=== PATIENT | female | born 2000 | race Caucasian/White ===

== ENCOUNTER 2018-11-27 10:34 | Emergency (ER) | payer BC ==
--- OUTSIDE RECORDS SUMMARY | 2018-11-27 10:39 | XMS REPORT | Continuity of Care Document ---
:2000 Author Organization [facility] Address [address] [place] [address] Phone Care Team Providers Name Role Phone Ava Jerez Unavailable Unavailable [facility], NURSE [place] Unavailable Unavailable Allergies, Adverse Reactions, Alerts Substance Reaction Status No Known Allergies Active Medications Medication Instructions Dosage Effective Dates Status Comments (start - stop) Depo-Provera 150 IM Q 11-13 weeks - Active mg/mL intramuscular suspension ADDERALL (unknown Not Available - Active strength) Problems Condition Effective Dates (start - Clinical Status Comments stop) Encounter for surveillance of injectable contraceptive Encounter for oth general cnsl and - advice on contraception Encounter for surveillance of injectable contraceptive Encounter for surveillance of injectable contraceptive Encounter for surveillance of injectable contraceptive Encounter for surveillance of injectable contraceptive Encounter for surveillance of injectable contraceptive Encounter for surveillance of injectable contraceptive Encounter for surveillance of injectable contraceptive Human immunodeficiency virus [HIV] - counseling Encounter for oth general cnsl and - advice on contraception Encounter for initial prescription of injectable contracep Other specified counseling Encntr screen for infections w sexl mode of transmiss Encounter for test, result negative Procedures Procedure Date INJECTION DEPO/CEFTRIAXONE INJECTION OR LAB ONLY VISIT EST DEPO OTHER Medical Services [employer] STI Contraceptive Results Test Name Date and Time Measure Units Reference Range Abnormal Flag Status Comments No information Advance Directives Directive Yes / No Effective Date File Name No information Encounters Encounter Practice Location Reason(s) Diagnoses Date Provider Providers Description For Visit Copied on Encounter [facility]. [facility] [address] Provider: [facility] injectable [address], [place], [place], [address]. [place], [address], [address] tel:[phone] [address] [place] [address] [place] [address], [place], [address], [place], [address]. [place], tel:[phone], [id number] [place] lting tel:[phone] Provider: [id number] NURSE [place] [facility]. [facility] En[facility] for Lamar [facility] general [place]. [address] Provider: [facility] cnsl and advice [address], [place] on [place], [place], [facility], [address] contraceptionEn [id number]. , [address] counter for tel:[phone], [place], [place] [address] [place], [place], [place], injectable [address]. [id number], contraceptive tel:[phone] [place] [phone] tel:[phone] [facility] Encounter for Naima Solorzano. [facility] [address] Provider: [facility] injectable [address], [place], [place], [address], [place], [address], [address] [place]. [address], [place], St, [place], [address]. [place], [id number], [place] tel:[phone] [facility] Encounter for May-0 Lamar [facility] of [place]. [address] Provider: [facility] injectable [address], Cyn[place] Finger contraceptive [place], [place], [facility], [address] [address]. , [address] tel:[phone], [place], [address] [place], [place], [address]. [id number], tel:[phone] [place] [phone] tel:[phone] lting [phone] Provider: NURSE [place] [facility]. [facility] Encounter for [place] Jeanine. [facility] [address] Provider: [facility] inject[address], [place], [place], [address], [place], [address] [facility], [address] [place]. [address] [place], [place], St, [place], [place], [address].Consu [id number], lting [place] Provider: tel:[phone] [place] [id number] [facility]. [facility] Encounter for Lamar [facility] of [place]. [address] Provider: [place] injectable [address], Cyn[place] Finger contraceptive [place], [place], [facility], [address] [address]. , [address] [place] tel:[phone], [facility], [address] [place], [place], [address]. [id number], tel:[phone] [place] [id number] tel:[phone] lting [phone] Provider: NURSE [place] [facility]. [facility] Encounter for [place] [facility] of [place]. [address] Provider: [place] injectable [address], [place] Finger contraceptive [place], [place], [place] M, [facility], [facility] [address]. [address] tel:[phone], [facility] [address] [place], [place], [address]. [id number], tel:[phone] [place] [phone] tel:[phone] [facility] Encounter for [employer] [facility] of [address]. Provider: [place] injectable [address] NURSE [place] Finger contraceptive [facility], [facility]. [facility], [address] [place], [address]. [address] [place] [place] tel:[phone] St, [place], [address] [place], [id number], [place] tel:[phone] [facility] Human Parete [facility] immunodef[facility] [address]. [address] Provider: [facility] y virus [HIV] [address], [place] Finger counselingEncou [place], [place], [place], [address], [address] [place]ter [place] [address]. [address] [place] general cnsl tel:[phone] St, [place], [place], [place], [place] [address] [place], [address]. [place], contraceptionEn tel:[phone], counter for [phone] [place] initial tel:[phone] prescription of [id number] injectable contracepOther specified counselingEncnt r screen for infections w sexl mode of transmissEncoun ter for test, result negative Family History Family Member Diagnosis Age At Onset 1st degree relative No hx of cancer of breast, colon, endometrium or ovary 1st degree relative No hx of coronary heart disease (female <65, male <55) 1st degree relative No hx of venous thromboembolism 1st degree relative No hx of osteoporosis Immunizations Vaccine Date Status Comments No information Payers Payer name Insurance type Covered libertarian ID Authorization(s) [facility] [id number] Social History Type Description Quantity Date Captured Comments Alcohol Use Details Unknown Caffeine Use Details Unknown Tobacco Use Status Unknown Smoking Status Never smoker Sex Female Vital Signs Date / Height Weight BMI Pulse Blood Temperature Respiratory Body Head BMI Pulse Inhaled Time: Rate Pressure Rate Surface Circumference percentile Ox [place] Area No information Chief Complaint And Reason For Visit No information Reason For Referral Reason For Referral No information Plan Of Treatment Date Type Action Status No information History Of Present Illness Encounter Date Complaint History Of Present Illness No information Functional Status Date Functional Assessment No information Medications Administered Medication Instructions Dosage Effective Dates (start - stop) Status Comments No information Instructions Date Instruction Additional Information No information Assessments Type Assessment Date assessment Encounter for surveillance of injectable contraceptive Goals Health Concern Goal Type Priority Status Date No information Medical Equipment Description Device [place] Device Identifier Effective Dates (start - stop ) Status No information Mental Status Date Cognitive Assessment No information Health Concerns Observation Date No information Concern Status Date No information
[2018-11-27 11:46] VITALS: BP 110/61
--- NOTE | 2018-11-27 12:23 | UC ---
Respiratory Complaint HPI - HPI Summary HPI Summary: 3 days of cough and feelings of chest congestion. Used to vape but hasn't for 1 -2 mo. Lives w/ a smoker. Denies fever. denies sick contacts. - History of Current Complaint Chief Complaint: UCRespiratory Stated Complaint: COUGH Time Seen by Provider: 11/27/18 12:11 Hx Obtained From: Patient Hx Last Menstrual Period: March 2017 Onset/Duration: Sudden Onset Pain Intensity: 4 Pain Scale Used: 0-10 Numeric Character: Cough: Nonproductive Aggravating Factors: Deep Breaths Alleviating Factors: Nothing - Allergies/Home Medications Allergies/Adverse Reactions: Allergies Allergy/AdvReac Type Severity Reaction Status Date / Time No Known Allergies Allergy Unverified 11/27/18 11:46 PMH/Surg Hx/FS Hx/Imm Hx - Additional Past Medical History Additional PMH: no chronic issues Previously Healthy: Yes - Surgical History Surgical History: None - Family History Known Family History: Positive: Non-Contributory - Social History Alcohol Use: None Substance Use Type: None Smoking Status (MU): Never Smoked Tobacco Review of Systems All Other Systems Reviewed And Are Negative: Yes Constitutional: Negative: Fever Skin: Negative: Rash ENT: Negative: Sore Throat, Ear Ache, Nasal Discharge, Sinus Congestion Respiratory: Positive: Cough. Negative: Shortness Of Breath Cardiovascular: Negative: Palpitations Gastrointestinal: Negative: Vomiting, Diarrhea Neurological: Negative: Headache Physical Exam Triage Information Reviewed: Yes Appearance: Well-Appearing Vital Signs: Initial Vital Signs Temp 98.1 F 11/27/18 11:43 Pulse 74 11/27/18 11:43 Resp 18 11/27/18 11:43 BP 110/61 11/27/18 11:43 Pulse Ox 100 11/27/18 11:43 Vital Signs Reviewed: Yes Eyes: Positive: Conjunctiva Clear ENT: Positive: Normal ENT inspection Neck: Positive: Supple, Nontender, No Lymphadenopathy Respiratory Exam: Normal Cardiovascular Exam: Normal Neurological: Positive: Alert, Other: - normal speech Respiratory Course/Dx - Course Course Of Treatment: Acute cough w/ no fever or sick contacts. Exam unremarkable. Disc risks of 2nd hand smoke. vitals good. likely viral etiology and can tx cough - Differential Dx/Diagnosis Differential Diagnosis/HQI/PQRI: Lower Resp Infection, Sinusitis, Other Provider Diagnosis: URI (upper respiratory infection) Discharge ED - Sign-Out/Discharge Documenting (check all that apply): Patient Departure All imaging exams completed and their final reports reviewed: No Studies - Discharge Plan Condition: Good Disposition: HOME Prescriptions: Acetaminoph/Cod 120/12 mg LIQ* [Tylenol/Codeine 120/12 LIQ*] 10 ml PO BEDTIME PRN 3 Days #30 ml MDD MDD 10ML PRN Reason: Spasms - Muscle Patient Education Materials: Upper Respiratory Infection (ED) Referrals: Elio Torres MD [Primary Care Provider] - Additional Instructions: PLEASE LIMIT VAPING. - Billing Disposition and Condition Condition: GOOD Disposition: Home
== END 2018-11-27 12:53 | disposition home or self-care (01) ==
LOC: UCEAST 10:34
DX: J06.9 Acute upper respiratory infection, unspecified (principal)
CPT/HCPCS: 99212; G0463